=== PATIENT | female | born 1965 | race Caucasian/White ===

== ENCOUNTER 2018-08-31 22:21 | Emergency (ER) | payer MEDICAID ==
[~2018-08-31] VITALS: Ht 157.5 cm; Wt 63.5 kg
[2018-08-31 22:26] VITALS: Ht 157.5 cm; Wt 63.5 kg
[2018-08-31 23:58] VITALS: BP 116/70
== END 2018-08-31 23:58 | disposition home or self-care (01) ==
LOC: ED 22:21
DX: R07.89 Other chest pain (principal); E11.9 Type 2 diabetes mellitus without complications; Z79.899 Other long term (current) drug therapy; V89.2XXA Person injured in unspecified motor-vehicle accident, traffic, initial encounter; Y93.89 Activity, other specified; Y92.410 Unspecified street and highway as the place of occurrence of the external cause; Y99.8 Other external cause status
CPT/HCPCS: 82962; J1885